=== PATIENT | female | born 1975 | race Two or more races ===

== ENCOUNTER 2017-02-11 12:37 | Day surgery (SDC) | payer OTHER ==
--- NOTE | 2017-02-10 22:17 | GHP ---
[f rep st] HISTORY AND PHYSICAL Amended report HISTORY OF PRESENT ILLNESS: On 01/28/2017 PC from patient positive urine test at home. LMP 12/28/2016. She has a history of MAB, blighted ovum. She reports light spotting. Blood type is O positive. Reviewed ectopic and SAB precautions. Order for beta HCG and progesterone faxed to the laboratory. On 01/29, patient notified of well elevated beta-hCG, but low progesterone. She reports that she has taken Prometrium with all 3 of her pregnancies. Prescription for Prometrium was called to [facility]. Patient reports light amount of spotting has almost stopped. Just some brownish-red wiping. Will repeat beta-hCG labs on 01/30/2017. On 01/31/2017, message left about beta-hCG and progesterone and the fact that they were increased. Plan of care was discussed for an early ultrasound in the following week. The patient not yet 6 weeks by ultrasound, but should see something with a beta-hCG of 27, 711. Again, patient's history is a history of blighted ovum and MAB. On 02/03/2017, the patient had an ultrasound with no cardiac activity. Denies bleeding and pain. Options were discussed. Patient at that time, shows not to re-do beta-hCG and progesterone. Discussed options. Patient was thinking about Cytotec at that time, but was unsure. Stopping the Prometrium. Beta-hCG was 41,439 with a progesterone of 15. On 02/03/2017, patient again a little bit unsure about her plan of care. Discussing repeat beta-hCG. Reviewing ultrasound again with the patient. Thinking about the Cytotec. Signs and symptoms were discussed, difficulties, bleeding, pain, and when to call for assistance. On 02/07/2017, patient no longer chooses to do Cytotec, thinking that she just wants to repeat a quantitative hCG as well as a progesterone. On 02/07/2017, all of that was faxed to the lab. On 02/10/2017, quantitative hCG and progesterone was found to be less than the previous quantitative hCG. That quantitative hCG was 36,801 and the progesterone was 4.68. Again, choices were discussed with patient. Risks, benefits, and whether or not she chooses to proceed with the Cytotec was discussed. At that time, patient decided to go ahead and plan on a D and C, which was scheduled for the patient to take place on 02/11/2017 at 1330 hours. The patient is a 41- year-old, 4, term 1, AB 2, living 1. PAST MEDICAL HISTORY: History of migraines years ago, HSV-1, exercise-induced asthma. PAST GYNECOLOGICAL HISTORY: A previous LSIL with JUNIOR 1, multiple colpocleises, but her last colpocleisis was 2015, where she had an ASCUS with positive HPV. Previous Mirena on 05/2014 and previous OCP use. PAST SURGICAL HISTORY: D and C in 05/2014. [place] teeth extraction. PAST HISTORY: In 10/2014, a 9-week blighted ovum where the patient had a D and C. On 03/2015, an MAB of a 7-2/7-weeks. On 02/2017, 8-3/7-weeks MAB. Patient is now scheduling a D and C. LABS: Patient is O positive, rubella immune. ultrasound on 02/03/2017 for viability: Number 1 fetus, no cardiac activity, a positive yolk sac, a positive gestational sac with a gestational age of 8-3/7- weeks. Progesterone on 02/08/2017 was 36,801 with a progesterone of 4.68. On 02/03/2017, 41,439, with a progesterone of 15. PAST GYNECOLOGICAL HISTORY: Previous LSIL with JUNIOR 1. In 2015, ASCUS and positive HPV. ALLERGIES: NKDA MEDICATIONS: Patient is taking progesterone 200 mg po QD, as well as vitamins daily. PLAN OF CARE: On 02/11/[address] Rachel England is to proceed to a D and C at patient request. The patient is aware of plan of care and needs to remain n.p.o. from the night before until the time of the procedure. Discussed risks, benefits and alternatives of the procedure. The patient at this time chooses to proceed to D and C. No N number at this time. /[id number]/MODL Add acc#, 02/11/17, peace REYNA
[2017-02-11] MEDS ORDERED: SCOPOLAMINE HYDROBROMIDE 1.5 MG PATCH TD ONE (13:59)
[2017-02-11] MEDS ORDERED: MIDAZOLAM 2 MG/2 ML VIAL IVP ONE (15:00)
[2017-02-11] MEDS ORDERED: PROPOFOL 200 MG/20 ML VIAL ONE (15:02)
[2017-02-11] MEDS ORDERED: fentaNYL 100 MCG/2 ML INJ ONE (15:07)
[2017-02-11] MEDS ORDERED: PROPOFOL/EMULSION 500 MG/50 ML BOTTLE IV ONE (15:09)
--- NOTE | 2017-02-12 14:02 | GOP ---
[f rep st] OPERATIVE REPORT DATE OF OPERATION: 02/11/2017 SURGEON: Rachel England MD ANESTHESIA: Laryngeal mask anesthesia. ANESTHESIOLOGIST: Micheal Denney MD. PREOPERATIVE DIAGNOSIS: Missed AB at 8 weeks. POSTOPERATIVE DIAGNOSIS: Missed AB at 8 weeks. PROCEDURE PERFORMED: Dilation and curettage. FINDINGS: DESCRIPTION OF PROCEDURE: Patient is a 41-year-old, -8-2 with recently diagnosed missed AB at 8+ weeks gestation. The patient's last menstrual period was 12/28/2016, and the patient had had ini tially normally elevated HCG levels; however, then there was an appropriate rise and an ultrasound r eveals growth of gestational sac and yolk sac, consistent with 8+ weeks' gestation. However, no fet al cardiac activity was identified. The patient was given the options of attempting Cytotec for pas deacon of the tissue; however, decided to proceed with definitive management of a D and C. The patien t was counseled as to the risks and benefits of the D and C, and the consent form signed. The patie nt was advised as to the option of Anora genetic testing at the time of bedside preop, and the patie nt declined. PAST OBSTETRIC HISTORY: The patient had a blighted ovum, managed with a D and C in 2013, as well as a missed AB in March of 2015. The patient had a term normal vaginal delivery in March of 2016. The pa john's blood type is O positive. DESCRIPTION OF PROCEDURE: The patient was taken to the operating room, where following satisfactory laryngeal mask anesthesia, the patient was placed in dorsal lithotomy position appropriate for vagi nal procedures. The patient was not felt to be requiring preoperative antibiotics. She had lower e xtremities SCDs in position throughout the procedure. The patient's perineum and vagina were preppe d and the patient draped in usual sterile manner for vaginal procedures. An atraumatic grasper was placed on the anterior lip of the cervix and gentle traction applied. The cervix was easily dilated up to a 9-1/2 Hegar dilator. The 9 suction tip was used on the suction machine, and several passes were made with the suction tip, removing a moderate amount of gestational tissue. After there was no additional tissue obtained, ultrasound was performed abdominally and the uterine cavity appeared empty. A small curette was used to sharply evaluate the endometrial canal. There was good uterine cry felt throughout the cavity and no additional tissue obtained. One final pass was made with suct ion curette and no additional tissue obtained. One final ultrasound view was taken abdominally, and again the uterine lining appeared thin. There was minimal bleeding through the cervix. The proced ure was completed. The patient was given IV Toradol. The tenaculum was removed, and there was no b leeding from the anterior lip of the cervix. The speculum was removed. The patient was cleaned off , then taken out of position. She was awoken and taken to the recovery room in stable condition. T he POCs were sent to pathology. There were no complications. Sponge and needle counts were correct x2. /[id number]/MODL
== END 2017-02-11 17:22 | disposition home or self-care (01) ==
LOC: FOBOP 12:37
PROVIDERS: ATTEND Obstetrics & Gynecology
PROC: 10D17ZZ Extraction of Products of Conception, Retained, Via Natural or Artificial Opening (ICD-10-PCS; principal; 2017-02-11)
DX: O02.1 Missed abortion (principal); Z3A.08 8 weeks gestation of pregnancy
CPT/HCPCS: J2250; J2704; J3010

== ENCOUNTER → 2017-07-01 | Outpatient (CLI) | payer OTHER | LOC: FIMAGING 12:39 | PROVIDERS: ATTEND Obstetrics & Gynecology | DX: O26.21 Pregnancy care for patient with recurrent pregnancy loss, first trimester (principal); O09.521 Supervision of elderly multigravida, first trimester; Z3A.12 12 weeks gestation of pregnancy ==

== ENCOUNTER → 2017-08-19 | Outpatient (CLI) | payer OTHER | LOC: FIMAGING 07:40 | PROVIDERS: ATTEND Obstetrics & Gynecology | DX: O09.522 Supervision of elderly multigravida, second trimester (principal); Z3A.19 19 weeks gestation of pregnancy ==

== ENCOUNTER → 2017-11-04 | Outpatient (CLI) | payer OTHER | LOC: FIMAGING 12:13 | PROVIDERS: ATTEND Obstetrics & Gynecology | DX: O09.523 Supervision of elderly multigravida, third trimester (principal); Z3A.30 30 weeks gestation of pregnancy ==

== ENCOUNTER 2017-12-23 01:50 | Inpatient (IN) | payer OTHER ==
[2017-12-23 03:41] LABS: PLATELET COUNT 208 10^3/uL (150-400)
--- NOTE | 2017-12-23 03:41 | GHP ---
[f rep st] HISTORY AND PHYSICAL DATE OF ADMISSION: 12/23/2017 HISTORY: The patient is a 42-year-old, 5, para 1, with an EDC of 01/11/2018, which gives her a gestational age of 37 and 3/7 weeks. The patient states that she started feeling regular contract ions and rupture of membranes at around 10:30 this evening. Clear fluid. Positive movement. Denies bloody show. States feeling positive movement. Comes to Labor and delivery at around 2 :00 am. On admit, patient is 4-5 cm. The patient has been routinely seen with [facility] since 11 and 2/7 weeks. MEDICAL HISTORY: Patient has a history of migraines, history of exercise-induced asthma, history of a low P4, headaches and dizziness, hyperemesis and nausea, cystitis, severe UTI. SURGICAL HISTORY: The patient had a D and C in 02/2017, D and C in 2013 for blighted ovum. Other foley rgical history wisdom teeth in high school. GYNECOLOGICAL HISTORY: History of persistent abnormal Paps, multiple colpo, in 04/2016 a negative co lpo, history of OCP use, Mirena use, IUD removed in 05/2011, chlamydia in 2007, HSV 1 acyclovir p.r.n ., positive HPV, rare yeast infections. The patient is AMA. FAMILY HISTORY: Noncontributory. PAST HISTORY: In 10/2014, had a blighted ovum and D and C. In 03/2015, had a missed AB at 7 weeks. In 03/2016, a male at 6 pounds 2 ounces, 37 and 5 7 weeks, 12 hours of labor vaginally wit h an epidural. In 02/2017 a missed AB and D and C, and then patient's present . SOCIAL HISTORY: The patient is to her . Denies drug use. Denies tobacco use. ALLERGIES: The patient is not allergic to any medications. MEDICATIONS: Being taken are vitamins with DHA, P4 200 mg at bedtime per vagina. PHYSICAL ASSESSMENT: GENERAL: Patient is awake, alert, oriented x3. LUNGS: Clear bilaterally. AB DOMEN: Bowel sounds are positive in all 4 quadrants. EXTREMITIES: DTRs are 1+ bilaterally. Homans sign is negative. LABORATORIES: Patient is O positive, antibody negative. RPR is nonreactive. Rubella is immune. He patitis is negative. HIV is negative Trio screen was negative in 2014. AFP was negative on 08/25/20 17, and was negative on 06/24/2017. A 1 hour GTT was within normal limits. The patient s tates verbally that she is GBS negative. PLAN OF CARE: 1. GBS negative. 2. Epidural when able. 3. Ambulate. 4. Consult Dr. Mónica Huffman on plan of care. /[id number]/MODL
[2017-12-23] MEDS ORDERED: LIDOCAINE 1% 300 MG/30 ML SDV ONE (04:21)
[2017-12-23] MEDS ORDERED: AMMONIA AROMATIC 1 EACH AMP IH ONE (04:21)
[2017-12-23] MEDS ORDERED: OLIVE OIL 118 ML BTL ONE (04:21)
[2017-12-23] MEDS ORDERED: OXYTOCIN 10 UNIT/ML VIAL ONE (04:22)
[2017-12-23] MEDS ORDERED: IBUPROFEN 600 MG TAB PO ONE (04:59)
--- NOTE | 2017-12-23 05:05 | OBDEL ---
Info Type: Vaginal Presentation at Delivery: Vertex L&D Analgesia/Anesthesia Type: None GBS+: No - Hospital Course Intrapartum: spontaneous labor srom clear fluid no meds intact perineum girl 8/9 apgars 12/23/17 05:46 Indications for Delivery: Spontaneous Labor, SROM Vaginal Delivery - Delivery Provider Delivery Physician/CNM: Adriana Craig Proctoring Provider: Mónica Huffman - Labor and Delivery Onset of Contractions Date: 12/23/17 Onset of Contractions Time: 00:00 Onset of Contractions Type: Spontaneous Rupture of Membranes Date: 12/23/17 Rupture of Membranes Time: 00:00 Rupture of Membranes Type: Spontaneous Amniotic Fluid Color: Clear Dilation Complete Date: 12/23/17 Dilation Complete Time: 04:14 Placenta Delivery Date: 12/23/17 Placenta Delivery Time: 04:40 Total Hours of Labor: 4 Vaginal Sponge Count Correct: No Vaginal Needle Count Correct: No Vaginal Sweep Performed: No EBL: 250 Delivery Events: None - Medications Labor Augmentation/Induction Methods Used: None [place] Data GARIMA: 01/13/18 Gestational Age: 37 week(s) and 0 day(s) Tobin Delivery Date: 12/23/17 Delivery Time: 04:34 Score (1 Min): 8 Score (5 Min): 9 ICD10 Worksheet Patient Problems: Problems Problem Status Onset srom labor term Acute
[2017-12-23] MEDS ORDERED: LR 1,000 ML IV PRN (05:22)
[2017-12-23] MEDS ORDERED: EPSOM SALT 454 GM TP PRN (05:22)
[2017-12-23] MEDS ORDERED: MISOPROSTOL 200 MCG TAB PR PRN (05:22)
[2017-12-23] MEDS ORDERED: OXYTOCIN 20 UNIT in LR 1,000 ML IV PRN (05:22)
[2017-12-23] MEDS ORDERED: TERBUTALINE SULFATE 1 MG/ML VIAL IV PRN (05:22)
[2017-12-23] MEDS ORDERED: OLIVE OIL 118 ML BTL MISC PRN (05:22)
[2017-12-23] MEDS: IBUPROFEN 600 MG TAB PO PRN ×3 (06:00→18:25)
[2017-12-23] MEDS ORDERED: HYDROCODONE/APAP 5/325 TAB PO PRN (08:03)
[2017-12-23] MEDS ORDERED: DOCUSATE SODIUM 100 MG CAP PO PRN (08:03)
[2017-12-23] MEDS ORDERED: HYDROCORTISONE 0.5% CREAM TP PRN (08:03)
[2017-12-23] MEDS ORDERED: SIMETHICONE 80 MG TAB CHEW PO PRN (08:03)
[2017-12-23] MEDS ORDERED: ACETAMINOPHEN 325 MG TAB PO PRN (08:03)
[2017-12-23 09:34] VITALS: RESP 16; O2SAT 95
[2017-12-24] MEDS: IBUPROFEN 600 MG TAB PO PRN ×2 (04:29→10:32)
[2017-12-24 09:43] VITALS: BP 113/78; PULSE 74; TEMP 97.6
--- NOTE | 2017-12-24 10:19 | OBPP ---
Progress Note Assessment/Plan: Assessment: PPD 1 s/p Plan: d/c home 12/24/17 10:17 Subjective/ Course: 12/24/17 10:17 Pt is doing well. bld is light. urinating fine. baby started latching better last noc - has been harder than first child. mod cramps but controlled with ibu. desires d/c. bottom not too sore Objective: 12/23/17 03:00 Patient ABO/Rh O POSITIVE 12/23/17 03:00 Temp Pulse Resp BP Pulse Ox 36.4 C 74 16 113/78 95 12/24/17 08:00 12/24/17 08:00 12/24/17 08:00 12/24/17 08:00 12/23/17 20:00 Uterine Position/Fundal Height: Umbilicus -1 Uterine Tone: Firm Physical Exam - Physical Exam Abdomen: non-tender, soft, other (FF at umb -1) Extremities: non-tender, pedal edema (minimal) Skin: normal color, warm/dry Neuro/Psych: alert, normal mood/affect
--- NOTE | 2017-12-24 10:20 | OBGCSDC ---
General Delivery Information - General Info : 4 Para: 2 Abortions: 2 Type: Vaginal L&D Analgesia/Anesthesia Type: None Admission Date: 12/23/17 Labs: Patient ABO/Rh O POSITIVE 12/23/17 03:00 Hct 36.8 % (38.0-47.0) L 12/23/17 03:00 - Hospital Course Intrapartum: spontaneous labor srom clear fluid no meds intact perineum girl 8/9 apgars 12/23/17 05:46 : 12/24/17 10:17 Pt is doing well. bld is light. urinating fine. baby started latching better last noc - has been harder than first child. mod cramps but controlled with ibu. desires d/c. bottom not too sore Vaginal - Delivery Provider Delivery Physician/CNM: Adriana Craig - Diagnosis Labor: Spontaneous Rupture of Membranes Type: Spontaneous Amniotic Fluid Color: Clear Delivery Events: None - Delivery EBL: 250 [place] Data GARIMA: 01/13/18 Gestational Age: 37 week(s) and 1 day(s) Tobin Delivery Date: 12/23/17 Delivery Time: 04:34 Sex of : Female Score (1 Min): 8 Score (5 Min): 9 Discharge Information - Discharge Information Condition: Good Instruction/Follow Up: Four Weeks (with therapist), Six Weeks (with [facility])
== END 2017-12-24 13:30 | disposition home or self-care (01) | DRG 775 ==
LOC: FLD 01:50 → FOB 07:30
PROVIDERS: ADMIT Advanced Practice Midwife; ATTEND Obstetrics & Gynecology
PROC: 10E0XZZ Delivery of Products of Conception, External Approach (ICD-10-PCS; principal; 2017-12-23)
DX: O80 Encounter for full-term uncomplicated delivery (principal); Z3A.37 37 weeks gestation of pregnancy; Z37.0 Single live birth
CPT/HCPCS: J2590